=== PATIENT | male | born 1930 | race Caucasian/White ===

== ENCOUNTER 2018-09-16 18:38 | Emergency (ER) | payer OTHER ==
[~2018-09-16] VITALS: Ht 167.6 cm; Wt 113.4 kg
[~2018-09-16 18:38] MED LIST: ACTOS15 MG PO; AMARIL; LIPITOR40 MG; LISINOPRIL1 GM; METFORMIN HCL1000 M1; PEPCID20 MG; PHENERGAN25 MG PO; VASOTEC2.5 MG PO; [UNRECOGNIZED DRUG - OTHER]
== END 2018-09-17 00:14 | disposition home or self-care (01) ==
LOC: ER 18:38
DX: J40 Bronchitis, not specified as acute or chronic (principal); J09.X2 Influenza due to identified novel influenza A virus with other respiratory manifestations

== ENCOUNTER 2019-04-18 12:46 | Emergency (ER) | payer OTHER ==
[~2019-04-18] VITALS: Ht 167.6 cm; Wt 112.5 kg
[2019-04-18] MEDS ORDERED: PROTONIX20 MG (13:25)
[2019-04-18] MEDS ORDERED: PRINIVIL10 MG (13:25)
[2019-04-18] MEDS ORDERED: GLIMEPIRIDE4 MG (13:27)
== END 2019-04-18 16:05 | disposition home or self-care (01) ==
LOC: ER 12:46
DX: S61.421A Laceration with foreign body of right hand, initial encounter (principal); S00.83XA Contusion of other part of head, initial encounter; W45.8XXA Other foreign body or object entering through skin, initial encounter; Y93.89 Activity, other specified; Y92.017 Garden or yard in single-family (private) house as the place of occurrence of the external cause; Y99.8 Other external cause status

== ENCOUNTER 2019-10-12 11:18 | Emergency (ER) | payer OTHER ==
[~2019-10-12] VITALS: Ht 167.6 cm; Wt 114.8 kg
[~2019-10-12 11:18] MED LIST changes: +GLIMEPIRIDE4 MG; +PRINIVIL10 MG; +PROTONIX20 MG
[2019-10-12] MEDS ORDERED: NEURONTIN300 MG PO (16:10)
== END 2019-10-12 16:19 | disposition home or self-care (01) ==
LOC: ER 11:18
DX: R07.89 Other chest pain (principal); M79.18 Myalgia, other site

== ENCOUNTER 2020-01-31 13:50 | Emergency (ER) | payer OTHER ==
[~2020-01-31] VITALS: Ht 170.2 cm; Wt 111.6 kg
[~2020-01-31 13:50] MED LIST changes: +NEURONTIN300 MG PO
== END 2020-01-31 18:53 | disposition home or self-care (01) ==
LOC: ER 13:50
DX: R42 Dizziness and giddiness (principal); R10.84 Generalized abdominal pain

== ENCOUNTER 2020-04-28 08:46 | Emergency (ER) | payer OTHER ==
[~2020-04-28] VITALS: Ht 167.6 cm; Wt 112.0 kg
[2020-04-28] MEDS ORDERED: CELECOXIB100 MG PO (16:17)
[2020-04-28] MEDS ORDERED: PEPCID AC20 MG PO (16:17)
[2020-04-28] MEDS ORDERED: LACTULOSE10 GM/151 PO (16:17)
[2020-04-28] MEDS ORDERED: SKELAXIN800 MG PO (16:17)
== END 2020-04-28 17:20 | disposition home or self-care (01) ==
LOC: ER 08:46 → CPU-OBS 08:47 → ER 08:47
DX: R07.89 Other chest pain (principal); M62.830 Muscle spasm of back